=== PATIENT | female | born 1975 | race Caucasian/White ===

== ENCOUNTER 2024-01-29 00:45 | Inpatient (IN) | payer SELFPAY ==
[~2024-01-29 00:45] MED LIST: ADVIL 200MG TA200 MG PO; AFRIN NASAL SPR15 M1 NS; ALBUTEROL0.09 MG/A1 IH; AMOXICILLIN 50500 MG PO; ASPIRIN 32325 MG/TAB PO; AZO URINARY PAI95 MG; CEFTIN500 MG PO; FLEXERIL 1010 MG/TAB PO; FORTAMET1000 MG PO; GLUCOPHAGE1000 MG PO; GLUCOPHAGE500 MG/TAB PO; IBU800 M1 PO; ILOTYCIN5 MG/GM OP; IPRATROPIUM BROM3 M1 IH; LANTUS SOLOS100 U/ML SQ; LEVEMIR100 U/ML SC; LORTAB 2.5/5001 TAB; NEB MC; NORCO 325 MG-51 TAB PO; NOVOLOG FLEX100 U/ML SC; PEN-VEE K500 MG PO; PERCOCET 325 MG1 TA2 PO; PREDNISONE20 MG PO; PREDNISONE50 MG PO; PROTONIX 40MG T40 MG PO; PROVENTIL0.09 MG/A1 IH; RESTORIL 1515 MG/CAP PO; SYMBICORT1 AE1; VENTOLIN0.09 MG IH; ZOFRAN ODT4 MG PO; [UNRECOGNIZED DRUG - OTHER]
[2024-01-31] MEDS ORDERED: Iohexol 300 - 100 ML VIAL IV ONE (13:47)
== END 2024-02-01 15:30 | disposition home or self-care (01) | DRG 872 ==
LOC: COL.ER 00:45 → SURG 06:00
PROVIDERS: ADMIT Internal Medicine
PROC: 02HV33Z Insertion of Infusion Device into Superior Vena Cava, Percutaneous Approach (ICD-10-PCS; principal; 2024-02-01)
DX: A41.9 Sepsis, unspecified organism (principal); N10 Acute pyelonephritis; Z16.12 Extended spectrum beta lactamase (ESBL) resistance; I10 Essential (primary) hypertension; J45.909 Unspecified asthma, uncomplicated; E78.5 Hyperlipidemia, unspecified; B96.20 Unspecified Escherichia coli [E. coli] as the cause of diseases classified elsewhere; E11.649 Type 2 diabetes mellitus with hypoglycemia without coma; Z90.710 Acquired absence of both cervix and uterus; Z79.84 Long term (current) use of oral hypoglycemic drugs; Z79.4 Long term (current) use of insulin; Z79.899 Other long term (current) drug therapy
CPT/HCPCS: C1751; Q9967